=== PATIENT | male | born 1970 | race Caucasian/White ===

== ENCOUNTER → 2023-06-24 09:08 | Outpatient (CLI) | payer BC, SELFPAY ==
--- NOTE | 2023-06-24 09:13 | DI.MRI.S_ITS ---
PROCEDURE: MRFOOT LT WO CON INDICATIONS: Pain in left foot TECHNIQUE: Multiphasic, multisequence MRI of the forefoot was performed, without intravenous contrast administration. COMPARISON: None. FINDINGS: Image quality: Excellent. Bones and joints: Marrow edema of the 3rd metatarsal head without fracture line, nonspecific may represent marrow contusion. Mild degenerative changes of the 3rd tarsometatarsal joint with associated subchondral cystic changes. Fragmentation of the tibial hallucal sesamoid , which may represent sesamoiditis versus acute fracture. Soft tissues: The Lisfranc ligament is intact. Mild subcutaneous edema of the dorsal lateral midfoot. Small amount of fluid plantar to the 5th metatarsal head, likely representing mild adventitial bursitis. No significant intermetatarsal bursitis. No muscle edema. IMPRESSION: 1. Findings concerning for marrow contusion of the 3rd metatarsal head. 2. Findings concerning for tibial hallucal sesamoiditis versus acute fracture. 3. Mild adventitial bursitis plantar to the 5th metatarsal head. Dictated by: Viviane Hubbard M.D. on 06/24/2023 at 11:06 Approved by: Viviane Hubbard M.D. on 06/24/2023 at 11:16
== END ==
PROVIDERS: PCP Internal Medicine; Referring Provider Podiatrist; Visit Provider Podiatrist
DX: M79.672 Pain in left foot (principal); M77.52 Other enthesopathy of left foot and ankle; M77.42 Metatarsalgia, left foot; R26.2 Difficulty in walking, not elsewhere classified
CPT/HCPCS: 73718